=== PATIENT | female | born 1965 | race Caucasian/White ===

== ENCOUNTER → 2017-02-18 | Outpatient (CLI) | payer OTHER | LOC: FIMAGING 12:13 | PROVIDERS: ATTEND Family Medicine | DX: Z12.31 Encounter for screening mammogram for malignant neoplasm of breast (principal) | CPT/HCPCS: G0202 ==

== ENCOUNTER 2017-08-30 11:53 | Day surgery (SDC) | payer OTHER ==
[2017-08-30] MEDS ORDERED: LR 1,000 ML IV ONE (12:25)
--- NOTE | 2017-08-30 12:51 | PDANEPAE ---
ANE History of Present Illness h/o polyps here for colonoscopy ANE Past Medical History - Cardiovascular History Hx Hypertension: No Hx Arrhythmias: No Hx Chest Pain: No Hx Coronary Artery / Peripheral Vascular Disease: No Hx CHF / Valvular Disease: No Hx Palpitations: No Cardiovascular History Comment: ? heart murmur - Pulmonary History Hx COPD: No Hx Asthma/Reactive Airway Disease: No Hx Recent Upper Respiratory Infection: No Hx Oxygen in Use at Home: No Hx Sleep Apnea: No Sleep Apnea Screening Result - Last Documented: Negative - Neurologic History Hx Cerebrovascular Accident: No Hx Seizures: No Hx Dementia: No - Endocrine History Hx Diabetes: No - Renal History Hx Renal Disorders: No - Liver History Hx Hepatic Disorders: No - Neurological & Psychiatric Hx Hx Neurological and Psychiatric Disorders: No - Cancer History Hx Cancer: No - Congenital Disorder History Hx Congenital Disorders: No - GI History Hx Gastrointestinal Disorders: No - Other Health History Other Health History: none - Chronic Pain History Chronic Pain: No - Surgical History Prior Surgeries: c-sections x2. colonoscopy fall 2014 ANE Review of Systems Review of Systems: - Exercise capacity METS (RN): 5 METS ANE Patient History - Allergies Allergies/Adverse Reactions: codeine Allergy (Verified 08/11/17 15:24) Rash - Home Medications Home Medications: Multivitamins 08/11/17 [Last Taken Unknown] Trinordiol 08/11/17 [Last Taken Unknown] Zyrtec 08/11/17 [Last Taken Unknown] - NPO status NPO Status: no food or drink >8 hours NPO Since - Liquids (Date): 08/30/17 NPO Since - Liquids (Time): 06:00 NPO Since - Solids (Date): 08/29/17 NPO Since - Solids (Time): 09:00 - Anes Hx Anes Hx: no prior problems - Smoking Hx Smoking Status: Never smoked - Alcohol Use Alcohol Use: Occasionally - Family Anes Hx Family Anes Hx: none Family Hx Anesthesia Complications: none ANE Labs/Vital Signs - Vital Signs Blood Pressure: 154/96 Heart Rate: 74 Respiratory Rate: 16 O2 Sat (%): 99 Height: 172.72 cm Weight: 81.647 kg ANE Physical Exam - Airway Neck exam: FROM Mallampati Score: Class 2 Mouth exam: normal dental/mouth exam - Pulmonary Pulmonary: no respiratory distress, clear to auscultation - Cardiovascular Cardiovascular: regular rate and rhythym, no murmur, rub, or gallop - ASA Status ASA Status: I ANE Anesthesia Plan Anesthesia Plan: GA with mask Total IV Anesthesia: Yes
--- NOTE | 2017-08-30 13:50 | PDGENHP ---
History & Physical Chief Complaint: polyp History of Present Illness: 52 year old female presents for surveillance of a complex ascending colon polyp Pertinent Past, Social, Family History: SoHx: social etoh Relevant Physical Exam: HEENT: anicteric. CV: RRR +s1s2. Lungs: CTAB. Abd: soft, nt, + bs Cardiorespiratory Assessment: ASA 1
[2017-08-30] MEDS ORDERED: PROPOFOL/EMULSION 500 MG/50 ML BOTTLE IV ONE ×2 (13:55→14:22)
[2017-08-30] MEDS ORDERED: INDOMETHACIN 50 MG SUPP PR PRN (13:58)
[2017-08-30] MEDS ORDERED: NS 500 ML IV SCH (14:00)
[2017-08-30] MEDS ORDERED: NALOXONE HCL 0.4 MG/ML INJ IVP PRN (14:31)
--- NOTE | 2017-08-30 14:32 | POSTANESTH ---
Post Anesthetic Evaluation Cardiovascular Status: Normal, Stable, Similar to Pre-Op Cond Respiratory Status: Normal, Stable, Similar to Pre-op Cond. Level of Consciousness/Mental Status: Can Participate in Eval, Alert and Oriented Pain Control: Adequate, Prn Tx Ordered Nausea/Vomiting Control: Adequate, Prn Tx Ordered Complications Possibly Related to Anesthesia: None Noted
--- NOTE | 2017-08-30 14:47 | GIREPORT ---
[facility] Surgical Services - Endoscopy Department Patient Name: Hillary Sanches Procedure Date: 08/30/2017 1:57 PM Patient Type: Outpatient Attending MD/ ER Physician: Jed Templeton MD Procedure: Colonoscopy Indications: High risk colon cancer surveillance: Personal history of colonic polyps Patient Profile: 52 year old female with a history of a complex ascending colon polyp presents for surveillance colonoscopy. Providers: Jed Templeton MD Medicines: Monitored Anesthesia Care Complications: No immediate complications. Estimated blood loss: Minimal. Description of Procedure: After obtaining informed consent, the scope was passed under direct vis ion. Throughout the procedure, the patient's blood pressure, pulse, and oxyg en saturations were monitored continuously. The was introduced through the anus and advanced to the cecum, identified by appendiceal orifice and ileoce dimitri valve. The colonoscopy was performed without difficulty. The patient tolerated the procedure well. The quality of the bowel preparation was good. The ileocecal valve, appendiceal orifice, and rectum were photographed. Findings: The perianal and digital rectal examinations were normal. Pertinent negatives include no palpable rectal lesions. Diverticula were found in the sigmoid colon and descending colon. A 4 mm polyp was found in the ascending colon. The polyp was sessile. T he polyp was removed with a cold snare. Resection and retrieval were compl ete. A 6 mm polyp was found in the ascending colon. The polyp was sessile. T he polyp was removed with a cold biopsy forceps. Resection and retrieval w ere complete. A tattoo was seen in the ascending colon. A post-polypectomy scar was f ound at the tattoo site. There was no evidence of residual polyp tissue. Estimated Blood Loss: Estimated blood loss was minimal. Post Op Diagnosis: - Diverticulosis in the sigmoid colon and in the descending colon. - One 4 mm polyp in the ascending colon, removed with a cold snare. Res ected and retrieved. - One 6 mm polyp in the ascending colon, removed with a cold biopsy for ceps. Resected and retrieved. - A tattoo was seen in the ascending colon. A post-polypectomy scar was found at the tattoo site. There was no evidence of residual polyp tissu e. Recommendation: - Discharge patient to home (with escort). - Advance diet as tolerated. - Continue present medications. - Repeat colonoscopy in 3 - 5 years for surveillance. - Use fiber, for example Citrucel, Fibercon, Konsyl or Metamucil. Attending Participation: I personally performed the entire procedure. Jed Templeton MD Jed Templeton MD 08/30/2017 2:47:12 PM This report has been signed electronicallyJed Templeton MD Number of Addenda: 0 Note Initiated On: 08/30/2017 1:57 PM Total Procedure Duration Time 0 hours 26 minutes 5 seconds [email or web address]
[2017-08-30 15:51] VITALS: BP 119/71
== END 2017-08-30 15:52 | disposition home or self-care (01) ==
LOC: FSGY 11:53
PROVIDERS: ATTEND Internal Medicine Gastroenterology
PROC: 0DBK4ZX Excision of Ascending Colon, Percutaneous Endoscopic Approach, Diagnostic (ICD-10-PCS; principal; 2017-08-30 14:15)
DX: D12.2 Benign neoplasm of ascending colon (principal)
CPT/HCPCS: J2704

== ENCOUNTER → 2018-07-14 | Outpatient (CLI) | payer OTHER | LOC: FIMAGING 08:23 | PROVIDERS: ATTEND Obstetrics & Gynecology | DX: Z12.31 Encounter for screening mammogram for malignant neoplasm of breast (principal) ==